=== PATIENT | male | born 1995 | race Two or more races ===

== ENCOUNTER 2017-01-18 20:05 | Emergency (ER) | payer MEDICAID ==
[~2017-01-18] VITALS: Ht 185.4 cm; Wt 99.8 kg
[2017-01-18] MEDS ORDERED: ONDANSETRON HCL 4 MG/2 ML VIAL IV ONE (21:00)
[2017-01-18] MEDS ORDERED: SODIUM CHLORIDE 0.9% 500 ML IV ONE (21:00)
[2017-01-18] MEDS ORDERED: KETOROLAC TROMETH 30 MG/ML 1ML VIAL IV ONE (21:45)
[2017-01-18 22:37] VITALS: BP 137/77
== END 2017-01-19 00:34 | disposition home or self-care (01) ==
LOC: EDBD 20:05 → ER 20:09
DX: R11.2 Nausea with vomiting, unspecified (principal)
CPT/HCPCS: 71010; 94761; 96361; 96374; 96375; 99285; J1885; J2405; J7030